=== PATIENT | male | born 1930 | race Caucasian/White ===

== ENCOUNTER 2016-05-16 15:05 | Day surgery (SDC) | payer OTHER, BC ==
[~2016-05-16] VITALS: Ht 172.7 cm; Wt 77.1 kg
[~2016-05-16 15:05] MED LIST: ACID CONTROL150 MG PO; ADOXA100 MG; ASPIRIN BUFFER325 MG PO; AVODART0.5 MG PO; BENADRYL25 MG PO; CIPRO500 MG PO; COREG25 M1 PO; COUMADIN5 MG PO; Coumadin,Jantoven PO; DIGOXIN125 MCG PO; DIOVAN160 MG; DIOVAN160 MG PO; DORYX PO; DORYX50 MG PO; FLOVENT 11120 INHALA IH; FLUNISOLIDE25 ML BOTH NARES; FLUOCINOLON118.28 M1 TP; ISOSORBIDE DINI20 MG PO; K-DUR10 ME2 PO; KENALOG,ARISTOC80 GM TP; LANOXIN,DIGI0.125 MG; LANOXIN,DIGI0.125 MG PO; LASIX20 MG PO; LIPITOR80 MG; LIPITOR80 MG PO; LO-DOSE ASPIRIN81 M1 PO; LO-DOSE ASPIRIN81 M2 PO; LOVENOX80 MG/0.8 SC; MULTIVITAMIN1 EAC1 PO; NITROGLYCERIN0.4 MG SL; NORCO 5/3251 TABLET PO; PLAVIX75 MG; PLAVIX75 MG PO; POTASSIUM CHLO10 ME4; PREDNISONE10 MG PO; RANITIDINE HCL150 MG PO; TAMSULOSIN HCL0.4 MG PO; TYLENOL PM1 CAPLET PO; TYLENOL REGULA325 MG PO; VALSARTAN160 MG PO; VITAMIN C500 MG PO; VITAMIN K100 MCG PO; Zantac PO
[2016-05-16 15:56] VITALS: BP 171/80
[2016-05-16 16:11] LABS: EOSINOPHIL COUNT 0.2 K/uL (0-0.3); HEMATOCRIT 43.4 % (38.0-50.0); IMMATURE GRANULOCYTE (%) 0.3 % (0.0-0.7); INSTRUMENT ABS NEUTROPHIL CT 4.4 K/uL; LYMPHOCYTE COUNT 2.1 K/uL (1.0-2.8); MCH 30.1 PG (29.0-34.0); MCHC 30.9 G/DL (30.0-36.0); MCV 97.5 FL (86-99); MONOCYTE (%) 10.5 % (3-12); MONOCYTE COUNT 0.8 K/uL (0-0.8); NEUTROPHIL (%) 58.7 % (45-76); NEUTROPHIL COUNT 4.4 K/uL (1.8-6.4); PLATELET COUNT 122 K/uL (156-360); RBC DIS.WIDTH-CV 13.6 % (11.8-14.6); RBC DIS.WIDTH-SD 48.7 % (39-53); RED BLOOD COUNT 4.45 M/uL (4.00-5.50); WHITE BLOOD COUNT 7.5 K/uL (4.1-10.2)
[2016-05-16 16:26] LABS: ANION GAP 7 MEQ/L (2-14); CHLORIDE 104 MEQ/L (99-109); SAMPLE HEMOLYSIS CHECK 0; SAMPLE ICTERIC CHECK 0; SAMPLE LIPEMIA CHECK 0; SODIUM 139 MEQ/L (136-147)
[2016-05-16 16:30] LABS: INTER. NORMALIZED RATIO 1.3; PROTHROMBIN TIME 12.8 (9.2-11.2)
[2016-05-16 16:31] LABS: GFR ESTIMATE (CALCULATED) > 59 mL/min/; GLUCOSE 90 mg/dL (70-99); UREA NITROGEN (BUN) 16 mg/dL (9-23)
[2016-05-16] MEDS ORDERED: NORCO 5/3251 TABLET PO (16:36)
[2016-05-16 21:24] VITALS: BP 155/97
[2016-05-16 22:29] VITALS: BP 149/77
[2016-05-17 01:43] VITALS: BP 160/90
[2016-05-17 03:35] VITALS: BP 154/72
[2016-05-17 08:15] VITALS: BP 150/90
== END 2016-05-17 10:13 | disposition home or self-care (01) ==
LOC: SDC 15:05 → 3EAST 19:19 → 2SOUTH 19:19 → 3EAST 05-17 00:14
PROVIDERS: Surgery
PROC: 0YU50JZ Supplement Right Inguinal Region with Synthetic Substitute, Open Approach (ICD-10-PCS; principal; 2016-05-16)
DX: K40.30 Unilateral inguinal hernia, with obstruction, without gangrene, not specified as recurrent (principal); Z79.01 Long term (current) use of anticoagulants; Z79.82 Long term (current) use of aspirin; I48.91 Unspecified atrial fibrillation; I80.9 Phlebitis and thrombophlebitis of unspecified site; I25.10 Atherosclerotic heart disease of native coronary artery without angina pectoris; I10 Essential (primary) hypertension; D64.9 Anemia, unspecified; E78.4 Other hyperlipidemia; K21.9 Gastro-esophageal reflux disease without esophagitis; I25.5 Ischemic cardiomyopathy; R31.29 Other microscopic hematuria; Z95.0 Presence of cardiac pacemaker; Z86.73 Personal history of transient ischemic attack (TIA), and cerebral infarction without residual deficits; Z85.820 Personal history of malignant melanoma of skin; Z91.09 Other allergy status, other than to drugs and biological substances; Z91.013 Allergy to seafood; Z88.8 Allergy status to other drugs, medicaments and biological substances; Z80.1 Family history of malignant neoplasm of trachea, bronchus and lung; Z82.49 Family history of ischemic heart disease and other diseases of the circulatory system; Z79.899 Other long term (current) drug therapy
CPT/HCPCS: 80048; 85025; 85610; C1781; G0378; J0131; J0690; J1170; S0020

== ENCOUNTER 2016-12-05 23:49 | Emergency (ER) | payer OTHER, BC ==
[~2016-12-05] VITALS: Ht 172.7 cm; Wt 79.2 kg
[2016-12-06 00:43] LABS: HEMATOCRIT 45.4 % (38.0-50.0); MCH 30.3 PG (29.0-34.0); MCHC 31.7 G/DL (30.0-36.0); MCV 95.4 FL (86-99); MEAN PLAT.VOLUME 9.8 uM^3 (9.0-12.4); PLATELET COUNT 138 K/uL (156-360); RBC DIS.WIDTH-CV 14.3 % (11.8-14.6); RBC DIS.WIDTH-SD 49.6 % (39-53); RED BLOOD COUNT 4.76 M/uL (4.00-5.50); WHITE BLOOD COUNT 7.5 K/uL (4.1-10.2)
[2016-12-06] MEDS ORDERED: KEFLEX500 MG PO (02:41)
[2016-12-06 02:54] LABS: INTER. NORMALIZED RATIO 2.9
[2016-12-06 03:10] VITALS: BP 164/77
== END 2016-12-06 03:10 | disposition home or self-care (01) ==
LOC: EME → EDBD 23:49 → EME 23:49
PROVIDERS: Emergency Medicine
PROC: 2Y41X5Z Packing of Nasal Region using Packing Material (ICD-10-PCS; principal; 2016-12-05)
DX: R04.0 Epistaxis (principal); K21.9 Gastro-esophageal reflux disease without esophagitis; I73.9 Peripheral vascular disease, unspecified; Z79.01 Long term (current) use of anticoagulants; Z86.718 Personal history of other venous thrombosis and embolism; Z95.0 Presence of cardiac pacemaker; Z85.820 Personal history of malignant melanoma of skin; Z86.73 Personal history of transient ischemic attack (TIA), and cerebral infarction without residual deficits; Z88.8 Allergy status to other drugs, medicaments and biological substances
CPT/HCPCS: 85027; 85610; 99281; 99284

== ENCOUNTER 2017-04-30 08:36 | Emergency (ER) | payer OTHER, BC ==
[~2017-04-30] VITALS: Ht 172.7 cm; Wt 77.7 kg
[~2017-04-30 08:36] MED LIST changes: +KEFLEX500 MG PO
[2017-04-30 09:10] LABS: BASOPHIL (%) 0.4 % (0-1); EOSINOPHIL (%) 2.6 % (0-5); EOSINOPHIL COUNT 0.2 K/uL (0-0.3); HEMOGLOBIN 12.9 G/DL (12.5-16.6); IMMATURE GRANULOCYTE (%) 0.3 % (0.0-0.7); LYMPHOCYTE (%) 25.2 % (15-42); LYMPHOCYTE COUNT 1.8 K/uL (1.0-2.8); MCH 30.6 PG (29.0-34.0); MCHC 31.5 G/DL (30.0-36.0); MCV 97.4 FL (86-99); MONOCYTE (%) 9.4 % (3-12); MONOCYTE COUNT 0.7 K/uL (0-0.8); NEUTROPHIL (%) 62.1 % (45-76); NEUTROPHIL COUNT 4.5 K/uL (1.8-6.4); PLATELET COUNT 108 K/uL (156-360); RBC DIS.WIDTH-CV 14.1 % (11.8-14.6); RBC DIS.WIDTH-SD 50.5 % (39-53); RED BLOOD COUNT 4.21 M/uL (4.00-5.50); WHITE BLOOD COUNT 7.3 K/uL (4.1-10.2)
[2017-04-30 09:16] LABS: INTER. NORMALIZED RATIO 2.6
[2017-04-30 09:18] LABS: PTT 42.6 SEC (25-37)
[2017-04-30 09:20] LABS: CHLORIDE 108 mEq/L (99-109); POTASSIUM 4.1 mEq/L (3.7-5.4); SODIUM 140 mEq/L (136-147)
[2017-04-30 09:22] LABS: GLUCOSE 101 mg/dL (70-99)
[2017-04-30 09:26] LABS: CREATININE 0.9 mg/dL (0.6-1.3); GFR ESTIMATE (CALCULATED) > 59 mL/min/ (58.99-99999)
[2017-04-30 09:27] LABS: UREA NITROGEN (BUN) 28 mg/dL (9-23)
[2017-04-30] MEDS ORDERED: KEFLEX500 MG PO (10:39)
[2017-04-30 11:08] VITALS: BP 171/85
== END 2017-04-30 11:15 | disposition home or self-care (01) ==
LOC: EME 08:36
PROVIDERS: Physician Assistant
PROC: 2Y41X5Z Packing of Nasal Region using Packing Material (ICD-10-PCS; principal; 2017-04-30)
DX: R04.0 Epistaxis (principal); K21.9 Gastro-esophageal reflux disease without esophagitis; I73.9 Peripheral vascular disease, unspecified; Z86.73 Personal history of transient ischemic attack (TIA), and cerebral infarction without residual deficits; Z85.820 Personal history of malignant melanoma of skin; Z86.718 Personal history of other venous thrombosis and embolism; Z95.0 Presence of cardiac pacemaker; Z88.8 Allergy status to other drugs, medicaments and biological substances; Z91.041 Radiographic dye allergy status
CPT/HCPCS: 80048; 85025; 85610; 85730; 99281; 99284

== ENCOUNTER 2017-10-09 04:49 | Inpatient (IN) | payer OTHER, BC ==
[~2017-10-09] VITALS: Ht 172.7 cm; Wt 94.3 kg
[2017-10-09 05:21] LABS: BASOPHIL (%) 0.7 % (0-1); BASOPHIL COUNT 0.1 K/uL (0-0.1); EOSINOPHIL (%) 2.2 % (0-5); EOSINOPHIL COUNT 0.2 K/uL (0-0.3); HEMOGLOBIN 12.8 G/DL (12.5-16.6); IMMATURE GRANULOCYTE (%) 0.7 % (0.0-0.7); LYMPHOCYTE (%) 23.2 % (15-42); LYMPHOCYTE COUNT 1.6 K/uL (1.0-2.8); MCH 30.7 PG (29.0-34.0); MCV 95.9 FL (86-99); MONOCYTE (%) 8.8 % (3-12); MONOCYTE COUNT 0.6 K/uL (0-0.8); NEUTROPHIL (%) 64.4 % (45-76); NEUTROPHIL COUNT 4.5 K/uL (1.8-6.4); PLATELET COUNT 112 K/uL (156-360); RBC DIS.WIDTH-CV 15.2 % (11.8-14.6); RBC DIS.WIDTH-SD 53.2 % (39-53); RED BLOOD COUNT 4.17 M/uL (4.00-5.50); WHITE BLOOD COUNT 6.9 K/uL (4.1-10.2)
[2017-10-09 05:22] LABS: CHLORIDE 105 mEq/L (99-109); POTASSIUM 4.2 mEq/L (3.7-5.4); SODIUM 139 mEq/L (136-147)
[2017-10-09 05:23] LABS: PTT 24.7 SEC (25-37)
[2017-10-09 05:24] LABS: GLUCOSE 135 mg/dL (70-99)
[2017-10-09 05:27] LABS: GFR ESTIMATE (CALCULATED) > 59 mL/min/ (58.99-99999)
[2017-10-09 05:28] LABS: UREA NITROGEN (BUN) 17 mg/dL (9-23)
[2017-10-09 05:32] LABS: INTER. NORMALIZED RATIO 1.3
[2017-10-09 05:36] LABS: TROP-I INTERPRETATION NEGATIVE; TROPONIN-I 0.07 ng/mL (0.0-0.30)
[2017-10-09 05:37] LABS: DIGOXIN 0.4 ng/mL (0.8-2.0)
[2017-10-09 08:03] LABS: APPEARANCE CLEAR ((CLEAR)); BILIRUBIN NEGATIVE; BLOOD NEGATIVE; COLOR YELLOW ((YELLOW)); GLUCOSE (STRIP) NEGATIVE; KETONES NEGATIVE; LEUKOCYTES NEGATIVE; NITRITE NEGATIVE; PROTEIN (STRIP) 30; SPECIFIC GRAVITY 1.019 (1.000-1.030); UCUL ADDED? NO
[2017-10-09 08:36] VITALS: BP 165/79
[2017-10-09 11:03] VITALS: BP 182/84
[2017-10-09 15:55] VITALS: BP 154/72
[2017-10-09] MEDS ORDERED: DOXYCYCLINE HYC50 M2 PO (16:05)
[2017-10-09] MEDS ORDERED: LASIX20 MG PO (16:05)
[2017-10-09] MEDS ORDERED: WARFARIN SODIUM5 MG PO (16:10)
[2017-10-09] MEDS ORDERED: CARBAMAZEPINE200 M1 PO (16:11)
[2017-10-09 19:49] VITALS: BP 142/70
[2017-10-10] VITALS (7 sets, daily range): BP systolic 123–188; BP diastolic 73–84
[2017-10-10 05:54] LABS: BASOPHIL (%) 0.4 % (0-1); BASOPHIL COUNT 0.1 K/uL (0-0.1); EOSINOPHIL (%) 2.9 % (0-5); EOSINOPHIL COUNT 0.4 K/uL (0-0.3); HEMATOCRIT 35.9 % (38.0-50.0); IMMATURE GRANULOCYTE (%) 0.6 % (0.0-0.7); LYMPHOCYTE (%) 16.4 % (15-42); MCH 30.1 PG (29.0-34.0); MCHC 30.6 G/DL (30.0-36.0); MCV 98.4 FL (86-99); MONOCYTE (%) 10.7 % (3-12); MONOCYTE COUNT 1.3 K/uL (0-0.8); NEUTROPHIL COUNT 8.3 K/uL (1.8-6.4); PLATELET COUNT 122 K/uL (156-360); RBC DIS.WIDTH-CV 15.3 % (11.8-14.6); RBC DIS.WIDTH-SD 54.4 % (39-53); RED BLOOD COUNT 3.65 M/uL (4.00-5.50)
[2017-10-10 06:04] LABS: TROP-I INTERPRETATION NEGATIVE
[2017-10-10 06:09] LABS: CHLORIDE 105 MEQ/L (99-109); CREATININE 0.8 MG/DL (0.6-1.3); GFR ESTIMATE (CALCULATED) > 59 mL/min/ (58.99-99999); GLUCOSE 124 mg/dL (70-99); POTASSIUM 4.3 MEQ/L (3.7-5.4); SODIUM 138 MEQ/L (136-147); UREA NITROGEN (BUN) 16 mg/dL (9-23)
[2017-10-11 03:30] VITALS: BP 159/70
[2017-10-11 08:40] VITALS: BP 169/72
[2017-10-11 08:48] LABS: HEMATOCRIT 34.7 % (38.0-50.0); HEMOGLOBIN 10.6 G/DL (12.5-16.6); MCH 29.8 PG (29.0-34.0); MCHC 30.5 G/DL (30.0-36.0); MCV 97.5 FL (86-99); PLATELET COUNT 116 K/uL (156-360); RBC DIS.WIDTH-CV 15.4 % (11.8-14.6); RBC DIS.WIDTH-SD 54.8 % (39-53); RED BLOOD COUNT 3.56 M/uL (4.00-5.50); WHITE BLOOD COUNT 12.1 K/uL (4.1-10.2)
[2017-10-11 08:55] LABS: INTER. NORMALIZED RATIO 1.6
[2017-10-11 11:44] VITALS: BP 122/58
[2017-10-11 15:45] VITALS: BP 141/78
[2017-10-11 20:17] VITALS: BP 98/48
[2017-10-11 20:49] VITALS: BP 140/62
[2017-10-12] VITALS (7 sets, daily range): BP systolic 115–145; BP diastolic 55–82
[2017-10-12 10:07] LABS: HEMATOCRIT 29.3 % (38.0-50.0); HEMOGLOBIN 9.2 G/DL (12.5-16.6); MCH 30.6 PG (29.0-34.0); MCHC 31.4 G/DL (30.0-36.0); MCV 97.3 FL (86-99); PLATELET COUNT 111 K/uL (156-360); RBC DIS.WIDTH-CV 15.3 % (11.8-14.6); RBC DIS.WIDTH-SD 54.5 % (39-53); RED BLOOD COUNT 3.01 M/uL (4.00-5.50); WHITE BLOOD COUNT 11.1 K/uL (4.1-10.2)
[2017-10-12 10:29] LABS: INTER. NORMALIZED RATIO 1.5
[2017-10-13 00:13] VITALS: BP 113/55
[2017-10-13 04:40] VITALS: BP 131/61
[2017-10-13 07:19] VITALS: BP 140/65
[2017-10-13 09:15] LABS: INTER. NORMALIZED RATIO 1.4
[2017-10-13 10:48] LABS: CHLORIDE 102 MEQ/L (99-109); CREATININE 1.3 MG/DL (0.6-1.3); GFR ESTIMATE (CALCULATED) 56 mL/min/ (58.99-99999); GLUCOSE 116 mg/dL (70-99); POTASSIUM 4.1 MEQ/L (3.7-5.4); SODIUM 137 MEQ/L (136-147); UREA NITROGEN (BUN) 42 mg/dL (9-23)
[2017-10-13 11:45] VITALS: BP 142/66
[2017-10-13 16:08] VITALS: BP 107/54
[2017-10-13 19:39] VITALS: BP 132/65
[2017-10-14 00:05] VITALS: BP 118/57
[2017-10-14 08:05] LABS: INTER. NORMALIZED RATIO 1.4
[2017-10-14 08:26] VITALS: BP 149/67
[2017-10-14 11:48] VITALS: BP 119/59
[2017-10-14 11:57] LABS: CHLORIDE 104 MEQ/L (99-109); CREATININE 1.2 MG/DL (0.6-1.3); GFR ESTIMATE (CALCULATED) > 59 mL/min/ (58.99-99999); GLUCOSE 101 mg/dL (70-99); POTASSIUM 4.1 MEQ/L (3.7-5.4); SODIUM 135 MEQ/L (136-147); UREA NITROGEN (BUN) 50 mg/dL (9-23)
[2017-10-14 12:36] LABS: BASOPHIL (%) 0.4 % (0-1); EOSINOPHIL (%) 1.3 % (0-5); EOSINOPHIL COUNT 0.1 K/uL (0-0.3); HEMATOCRIT 31.8 % (38.0-50.0); HEMOGLOBIN 10.1 G/DL (12.5-16.6); IMMATURE GRANULOCYTE (%) 0.5 % (0.0-0.7); LYMPHOCYTE (%) 13.4 % (15-42); LYMPHOCYTE COUNT 1.4 K/uL (1.0-2.8); MCH 30.8 PG (29.0-34.0); MCHC 31.8 G/DL (30.0-36.0); MONOCYTE (%) 12.9 % (3-12); MONOCYTE COUNT 1.4 K/uL (0-0.8); NEUTROPHIL (%) 71.5 % (45-76); NEUTROPHIL COUNT 7.6 K/uL (1.8-6.4); RBC DIS.WIDTH-CV 15.7 % (11.8-14.6); RED BLOOD COUNT 3.28 M/uL (4.00-5.50); WHITE BLOOD COUNT 10.6 K/uL (4.1-10.2)
[2017-10-14 13:16] LABS: PLATELET COUNT 159 K/uL (156-360)
[2017-10-14 15:53] VITALS: BP 128/58
[2017-10-14 20:39] VITALS: BP 126/58
[2017-10-15] VITALS (7 sets, daily range): BP systolic 125–175; BP diastolic 59–75
[2017-10-15 06:56] LABS: INTER. NORMALIZED RATIO 1.4
[2017-10-15 11:59] LABS: CHLORIDE 103 MEQ/L (99-109); POTASSIUM 3.6 MEQ/L (3.7-5.4); SODIUM 133 MEQ/L (136-147)
[2017-10-15 12:05] LABS: CREATININE 0.9 MG/DL (0.6-1.3); GFR ESTIMATE (CALCULATED) > 59 mL/min/ (58.99-99999); GLUCOSE 117 mg/dL (70-99); UREA NITROGEN (BUN) 39 mg/dL (9-23)
[2017-10-16] VITALS (7 sets, daily range): BP systolic 139–168; BP diastolic 65–78
[2017-10-16 08:25] LABS: INTER. NORMALIZED RATIO 1.5
[2017-10-16 09:49] LABS: CHLORIDE 105 MEQ/L (99-109); POTASSIUM 4.1 MEQ/L (3.7-5.4); SODIUM 135 MEQ/L (136-147)
[2017-10-16 09:54] LABS: CREATININE 0.7 MG/DL (0.6-1.3); GFR ESTIMATE (CALCULATED) > 59 mL/min/ (58.99-99999); GLUCOSE 103 mg/dL (70-99); UREA NITROGEN (BUN) 29 mg/dL (9-23)
[2017-10-17 03:25] VITALS: BP 150/69
[2017-10-17 07:35] VITALS: BP 142/72
[2017-10-17 11:35] VITALS: BP 138/68
[2017-10-17] MEDS ORDERED: BISACODYL5 MG PO (13:52)
[2017-10-17] MEDS ORDERED: DOCUSATE SODIU100 MG PO (13:53)
[2017-10-17 15:13] VITALS: BP 158/76
== END 2017-10-17 17:13 | DRG 470 ==
LOC: EME 04:49 → EDOF 07:31 → 4EAST 07:31 → 3EAST 07:31 → ENRESERV 07:33 → 3EAST 08:16 → ENRESERV 23:45 → 4WEST 10-10 00:15 → 3EAST 10-10 00:15 → CANRESERV 10-10 00:53 → ENRESERV 10-10 00:54 → 4EAST 10-10 00:55 → ENRESERV 10-11 10:29 → 3EAST 10-11 15:15
PROVIDERS: Emergency Medicine; Hospitalist; Internal Medicine
PROC: 0SRR0JA Replacement of Right Hip Joint, Femoral Surface with Synthetic Substitute, Uncemented, Open Approach (ICD-10-PCS; principal; 2017-10-09)
DX: S72.031A Displaced midcervical fracture of right femur, initial encounter for closed fracture (principal); S72.143A Displaced intertrochanteric fracture of unspecified femur, initial encounter for closed fracture; W01.0XXA Fall on same level from slipping, tripping and stumbling without subsequent striking against object, initial encounter; I97.88 Other intraoperative complications of the circulatory system, not elsewhere classified; I95.89 Other hypotension; E86.0 Dehydration; R41.82 Altered mental status, unspecified; I48.0 Paroxysmal atrial fibrillation; I11.0 Hypertensive heart disease with heart failure; I50.42 Chronic combined systolic (congestive) and diastolic (congestive) heart failure; I25.10 Atherosclerotic heart disease of native coronary artery without angina pectoris; K21.9 Gastro-esophageal reflux disease without esophagitis; D69.6 Thrombocytopenia, unspecified; I25.5 Ischemic cardiomyopathy; I27.20 Pulmonary hypertension, unspecified; I73.9 Peripheral vascular disease, unspecified; K59.00 Constipation, unspecified; Z91.041 Radiographic dye allergy status; E78.5 Hyperlipidemia, unspecified; E66.9 Obesity, unspecified; Z68.31 Body mass index [BMI] 31.0-31.9, adult; R26.9 Unspecified abnormalities of gait and mobility; I25.2 Old myocardial infarction; Z85.820 Personal history of malignant melanoma of skin; Z86.718 Personal history of other venous thrombosis and embolism; Z86.73 Personal history of transient ischemic attack (TIA), and cerebral infarction without residual deficits; Z95.0 Presence of cardiac pacemaker; Z79.01 Long term (current) use of anticoagulants; Z79.82 Long term (current) use of aspirin; R33.9 Retention of urine, unspecified
CPT/HCPCS: 70450; 71045; 73502; 73700; 80048; 80048 91; 80162; 81003; 84484; 85025; 85027; 85610; 85730; 86850; 86900; 86901; 92526 GN; 92610 GN; 93005; 93970; 97530 GO; 97530 GP; 99281; 99284; J0690; J1170; J1644; J2270; J2310; J2405; J3480; J7030; J7040; J7042